=== PATIENT | female | born 1955 | race Caucasian/White ===

== ENCOUNTER 2022-07-27 16:49 | Emergency (ER) | payer OTHER ==
[~2022-07-27] VITALS: Ht 160 cm; Wt 74.8 kg
--- NOTE | 2022-07-27 17:19 | NUR ---
66F presents to ED with c/o productive cough, SOB, and ABD pain x1.5 weeks. Pt reports a constant aching like pain to RUQ. Pt denies fevers, chills, N/V/D. Pt reports being seen at [facility] this morning and referred to visit an ED to r/o appendicitis or hernia. Pt reports using prednisone and azithromycin with no relief. Pt changed into gown and placed on bedside monitor.
[2022-07-27] MEDS ORDERED: MORPHINE SULFATE 4 MG/ML SYR IVP ONE (17:30)
[2022-07-27] MEDS ORDERED: NACL 0.9% 1,000 ML IV ONE (17:30)
[2022-07-27 17:54] LABS: BASOPHILS % (AUTO) 0.3 % (0.0-2.0); HEMATOCRIT 40.8 % (36-48); HEMOGLOBIN 13.8 g/dL (12.0-16.0); LYMPHOCYTES % (AUTO) 8.8 % (20.5-51.1); MEAN CORPUSCULAR HEMOGLOBIN 30 pg (27-31); MEAN CORPUSCULAR HGB CONC 34 g/dL (33-37); MEAN CORPUSCULAR VOLUME 89.1 fL (80-94); MONOCYTES # (AUTO) 1.2 K/uL (0.8-1.0); MONOCYTES % (AUTO) 10.5 % (1.7-9.3); NEUTROPHILS # (AUTO) 9.4 K/uL (1.8-7.7); NEUTROPHILS % (AUTO) 80.4 % (42.2-75.2); PLATELET COUNT (AUTO) 235 K/uL (140-450); RED BLOOD CELL COUNT(AUTO) 4.57 MIL/uL (4.20-5.40); RED CELL DISTRIBUTION WIDTH 13.7 % (11.6-13.7); WHITE BLOOD COUNT (AUTO) 11.7 K/uL (4.8-10.8)
[2022-07-27 18:22] LABS: ALBUMIN 4.5 g/dL (3.4-5.0); ANION GAP 15.4 (8-16); ASPARTATE AMINOTRANSFERASE 20 U/L (15-37); CARBON DIOXIDE 25.8 mmol/L (21-32); CHLORIDE 95 mmol/L (98-107); CREATININE 1.3 mg/dL (0.6-1.3); GFR ARICAN-AMERICAN 53 mL/min (>90); GLUCOSE 97 mg/dL (74-106); LIPASE 213 U/L (73-393); POTASSIUM 3.2 mmol/L (3.5-5.1); SODIUM SERUM 133 mmol/L (136-145); TOTAL BILIRUBIN 0.5 mg/dL (0.0-1.0); UREA NITROGEN, BLOOD 23 mg/dL (7-18)
[2022-07-27 18:50] LABS: APPEARANCE,URINE CLEAR (CLEAR); BILIRUBIN,URINE NEGATIVE (NEGATIVE); BLOOD, URINE NEGATIVE (NEGATIVE); COLOR,URINE YELLOW (YELLOW); LEUKOCYTE ESTERASE ,URINE 3+ (NEGATIVE); NITRITE, URINE NEGATIVE (NEGATIVE); UGLUCOSE NEGATIVE (NEGATIVE)
--- NOTE | 2022-07-27 19:13 | NUR ---
Pt report given to TIN Gonzalez. Transfer of care at this time.
[2022-07-27 19:36] LABS: RBC,URINE 0-5 /HPF (0-5); YEAST,URINE None Seen /HPF (None Seen)
[2022-07-27 19:37] LABS: TRICHOMONAS,URINE None Seen /HPF (None Seen)
--- NOTE | 2022-07-27 20:00 | NUR ---
Patient resting in bed, A/Ox4, chest rise and fall symmetrical, no c/o pain or s/s of distress, patient on monitor
[2022-07-27] MEDS ORDERED: NITR100C7 PO (20:09)
[2022-07-27] MEDS ORDERED: POTASSIUM CHLORIDE 10 MEQ TABER PO ONE (20:15)
[2022-07-27] MEDS ORDERED: NITROFURANTOIN 100 MG CAP PO ONE (20:15)
[2022-07-27 20:52] VITALS: BP 124/85
== END 2022-07-27 20:30 | disposition home or self-care (01) ==
LOC: MED 16:49
DX: N39.0 Urinary tract infection, site not specified (principal); Z20.822 Contact with and (suspected) exposure to COVID-19; R07.9 Chest pain, unspecified; I10 Essential (primary) hypertension; N18.9 Chronic kidney disease, unspecified; J44.9 Chronic obstructive pulmonary disease, unspecified; E78.5 Hyperlipidemia, unspecified; E87.6 Hypokalemia; Z79.899 Other long term (current) drug therapy
CPT/HCPCS: 36415; 71275; 74177; 80053; 81001; 83690; 84484; 85025; 87086; 87426; 93005; 96361; 96374; 99285; J2270; J7030; Q9967

== ENCOUNTER 2022-08-03 13:27 | Emergency (ER) | payer OTHER ==
[~2022-08-03] VITALS: Ht 162.6 cm; Wt 72.6 kg
[~2022-08-03 13:27] MED LIST: NITR100C7 PO
[2022-08-03 13:48] VITALS: BP 132/83
--- NOTE | 2022-08-03 13:57 | NUR ---
PT AMB TO BED 3
[2022-08-03] MEDS ORDERED: ONDANSETRON 4 MG/2 ML VIAL IVP ONE (14:15)
[2022-08-03] MEDS ORDERED: MORPHINE SULFATE 4 MG/ML SYR IVP ONE (14:15)
[2022-08-03] MEDS ORDERED: NACL 0.9% 1,000 ML IV ONE (14:15)
[2022-08-03 14:36] LABS: BASOPHILS # (AUTO) 0.1 K/uL (0.00-0.22); BASOPHILS % (AUTO) 0.6 % (0.0-2.0); EOSINOPHILS % (AUTO) 0.3 % (0.0-4.0); HEMOGLOBIN 13.8 g/dL (12.0-16.0); LYMPHOCYTES # (AUTO) 1.8 K/uL (2.5-16.5); LYMPHOCYTES % (AUTO) 18.9 % (20.5-51.1); MEAN CORPUSCULAR HEMOGLOBIN 31 pg (27-31); MEAN CORPUSCULAR HGB CONC 35 g/dL (33-37); MEAN CORPUSCULAR VOLUME 89.6 fL (80-94); MONOCYTES # (AUTO) 0.8 K/uL (0.8-1.0); NEUTROPHILS # (AUTO) 6.7 K/uL (1.8-7.7); NEUTROPHILS % (AUTO) 71.2 % (42.2-75.2); PLATELET COUNT (AUTO) 300 K/uL (140-450); RED BLOOD CELL COUNT(AUTO) 4.46 MIL/uL (4.20-5.40); RED CELL DISTRIBUTION WIDTH 13.5 % (11.6-13.7); WHITE BLOOD COUNT (AUTO) 9.3 K/uL (4.8-10.8)
[2022-08-03 14:39] LABS: APPEARANCE,URINE CLEAR (CLEAR); BILIRUBIN,URINE SMALL (NEGATIVE); BLOOD, URINE NEGATIVE (NEGATIVE); COLOR,URINE YELLOW (YELLOW); LEUKOCYTE ESTERASE ,URINE NEGATIVE (NEGATIVE); NITRITE, URINE NEGATIVE (NEGATIVE); UGLUCOSE NEGATIVE (NEGATIVE)
[2022-08-03 14:51] LABS: ALBUMIN 4.4 g/dL (3.4-5.0); ANION GAP 15.7 (8-16); CREATININE 1.5 mg/dL (0.6-1.3); POTASSIUM 3.7 mmol/L (3.5-5.1); TOTAL BILIRUBIN 0.3 mg/dL (0.0-1.0)
[2022-08-03 15:13] LABS: RBC,URINE NONE SEEN /HPF (0-5)
[2022-08-03 15:14] LABS: TRICHOMONAS,URINE None Seen /HPF (None Seen); WBC,URINE 0-5 /HPF (0-5); YEAST,URINE None Seen /HPF (None Seen)
--- NOTE | 2022-08-03 15:30 | NUR ---
a/o times 4, medicated for abd pain, also reports md tin notified, o2 sat 96% ra
[2022-08-03] MEDS ORDERED: ALBUTEROL SULFATE/IPRATROPIU 3 ML SOL IH ONE (15:35)
--- NOTE | 2022-08-03 16:20 | NUR ---
feels better about abd pain, 2/10, no sob, o2 sat 98% ra, sr up time 2
[2022-08-03] MEDS ORDERED: PRED20TA5 PO (16:30)
[2022-08-03] MEDS ORDERED: DOXY-690 PO (16:30)
[2022-08-03] MEDS ORDERED: ALBU0.0912 IH (16:30)
[2022-08-03 16:44] VITALS: BP 127/76
--- NOTE | 2022-08-03 16:47 | NUR ---
Patient discharged with v/s stable. Written and verbal after care instructions given and explained. Patient verbalized understanding. Ambulatory with steady gait. All questions addressed prior to discharge. Advised to follow up with PMD in 2-3 days
--- NOTE | 2022-08-06 08:16 | NUR ---
LATE ENTRY -- CONFIRMED WITH NURSE NS INFUSION COMPLETED AT 1532 08/03/22
== END 2022-08-03 16:47 | disposition home or self-care (01) ==
LOC: MED 13:27
DX: J18.9 Pneumonia, unspecified organism (principal); Z20.822 Contact with and (suspected) exposure to COVID-19; R10.31 Right lower quadrant pain; N18.9 Chronic kidney disease, unspecified; J44.9 Chronic obstructive pulmonary disease, unspecified; I10 Essential (primary) hypertension; Z79.899 Other long term (current) drug therapy
CPT/HCPCS: 36415; 71045; 74176; 80053; 81001; 83605; 83690; 85025; 87040; 87426; 87804; 94640; 94760; 96361; 96374; 96375; 99285; J2270; J2405; J7030; Q0092

== ENCOUNTER 2023-02-12 20:45 | Emergency (ER) | payer OTHER ==
[~2023-02-12 20:45] MED LIST changes: +ALBU0.0912 IH; +DOXY-690 PO; +PRED20TA5 PO
[2023-02-13] MEDS ORDERED: AMPH10TA PO (04:07)
[2023-02-13] MEDS ORDERED: ACET-9527 PO (04:07)
[2023-02-13] MEDS ORDERED: ATOR40TA PO (04:07)
[2023-02-13] MEDS ORDERED: PROP20TA29 PO (04:07)
[2023-02-13] MEDS ORDERED: LOSA100T2 PO (04:07)
[2023-02-13] MEDS ORDERED: VARE1TAB34 PO (04:07)
[2023-02-13] MEDS ORDERED: DULO30EC PO (04:07)
[2023-02-13] MEDS ORDERED: LID5T TP (04:13)
[2023-02-13] MEDS ORDERED: BENZ150C2 PO (04:13)
[2023-02-13] MEDS ORDERED: BENZ200C4 PO (04:13)
[2023-02-13] MEDS ORDERED: HYDR-133 PO (04:13)
[2023-02-13] MEDS ORDERED: FLUT1DSK2 IH (04:13)
[2023-02-13] MEDS ORDERED: CITA20TA15 PO (04:13)
== END 2023-02-12 22:04 | disposition left against medical advice (07) ==
LOC: MED 20:45
DX: Z53.21 Procedure and treatment not carried out due to patient leaving prior to being seen by health care provider (principal)

== ENCOUNTER 2023-02-12 23:13 | Inpatient (IN) | payer OTHER ==
[~2023-02-12] VITALS: Ht 162.6 cm; Wt 72.6 kg
[2023-02-12 23:18] VITALS: BP 138/77; PULSE 95; RESP 22; TEMP 99.5; O2SAT 96
[2023-02-13] MEDS ORDERED: AMPICILLIN/SULBACTAM 3 GM VIAL IM ONE (01:30)
[2023-02-13] MEDS ORDERED: ACETAMINOPHEN EXTRA STRENGTH 500 MG TAB PO ONE (01:30)
[2023-02-13] MEDS ORDERED: MORPHINE SULFATE 4 MG/ML SYR IVP ONE ×3 (02:20→05:00)
[2023-02-13] MEDS ORDERED: AMPICILLIN/SULBACTAM 3 GM in NACL 0.9% 100 ML IV ONE (02:50)
[2023-02-13 03:06] LABS: BASOPHILS % (AUTO) 0.4 % (0.0-2.0); EOSINOPHILS % (AUTO) 0.3 % (0.0-4.0); HEMATOCRIT 35.7 % (36-48); LYMPHOCYTES # (AUTO) 2.2 K/uL (2.5-16.5); LYMPHOCYTES % (AUTO) 18.9 % (20.5-51.1); MEAN CORPUSCULAR HEMOGLOBIN 30 pg (27-31); MEAN CORPUSCULAR HGB CONC 34 g/dL (33-37); MEAN CORPUSCULAR VOLUME 88.2 fL (80-94); MONOCYTES # (AUTO) 1.1 K/uL (0.8-1.0); MONOCYTES % (AUTO) 9.3 % (1.7-9.3); NEUTROPHILS # (AUTO) 8.2 K/uL (1.8-7.7); NEUTROPHILS % (AUTO) 71.1 % (42.2-75.2); PLATELET COUNT (AUTO) 160 K/uL (140-450); RED BLOOD CELL COUNT(AUTO) 4.05 MIL/uL (4.20-5.40); RED CELL DISTRIBUTION WIDTH 14.8 % (11.6-13.7); WHITE BLOOD COUNT (AUTO) 11.6 K/uL (4.8-10.8)
[2023-02-13 03:18] LABS: ANION GAP 16.2 (8-16); CALCIUM 8.7 mg/dL (8.5-10.1); CARBON DIOXIDE 22.9 mmol/L (21-32); CREATININE 1.8 mg/dL (0.6-1.3); POTASSIUM 3.1 mmol/L (3.5-5.1)
[2023-02-13 03:27] LABS: LACTIC ACID 1.2 mmol/L (0.4-2.0)
[2023-02-13] MEDS ORDERED: ACET-9527 PO (04:07)
[2023-02-13] MEDS ORDERED: LOSA100T2 PO (04:07)
[2023-02-13] MEDS ORDERED: VARE1TAB34 PO (04:07)
[2023-02-13] MEDS ORDERED: DULO30EC PO (04:07)
[2023-02-13] MEDS ORDERED: ATOR40TA PO (04:07)
[2023-02-13] MEDS ORDERED: AMPH10TA PO (04:07)
[2023-02-13] MEDS ORDERED: PROP20TA29 PO (04:07)
[2023-02-13] MEDS ORDERED: LID5T TP (04:13)
[2023-02-13] MEDS ORDERED: FLUT1DSK2 IH (04:13)
[2023-02-13] MEDS ORDERED: HYDR-133 PO (04:13)
[2023-02-13] MEDS ORDERED: BENZ200C4 PO (04:13)
[2023-02-13] MEDS ORDERED: CITA20TA15 PO (04:13)
[2023-02-13] MEDS ORDERED: BENZ150C2 PO (04:13)
[2023-02-13] MEDS ORDERED: KETOROLAC 15 MG/ML VIAL IVP ONE ×2 (04:30→05:00)
[2023-02-13] MEDS ORDERED: ONDANSETRON 4 MG/2 ML VIAL IVP PRN (05:50)
[2023-02-13] MEDS ORDERED: ACETAMINOPHEN 325 MG TAB PO PRN (05:50)
[2023-02-13] MEDS: AMPICILLIN/SULBACTAM 1.5 GM in NACL 0.9% 50 ML IV SCH ×2 (06:00→11:47)
[2023-02-13] MEDS: NACL 0.9% 1,000 ML IV SCH ×3 (06:48→23:46)
[2023-02-13 08:00] VITALS: RESP 18; O2SAT 98
[2023-02-13] MEDS: HYDROcodone/APAP 5/325 MG 1 TAB TAB PO PRN ×3 (11:49→22:18)
[2023-02-13] MEDS ORDERED: POTASSIUM CHLORIDE 10 MEQ TABER PO SCH (12:00)
[2023-02-13 16:00] VITALS: BP 132/64; PULSE 84; RESP 18; TEMP 97.4; O2SAT 98
[2023-02-13] MEDS ORDERED: VANCOMYCIN PER PHARMACY MC PRN (16:25)
[2023-02-13 20:00] VITALS: BP 134/62; PULSE 82; RESP 18; TEMP 98; O2SAT 98
[2023-02-13] MEDS ORDERED: VANCOMYCIN 1,000 MG in DEXTROSE 5% 250 ML IV SCH (20:00)
[2023-02-13] MEDS ORDERED: CLINDAMYCIN 900MG/D5W PM 50 ML IV SCH (21:00)
[2023-02-13] MEDS: AMPICILLIN/SULBACTAM 3 GM in NACL 0.9% 100 ML IV SCH (23:45)
[2023-02-14 04:00] VITALS: BP 110/63; PULSE 85; RESP 18; TEMP 97.8; O2SAT 97
[2023-02-14] MEDS: AMPICILLIN/SULBACTAM 3 GM in NACL 0.9% 100 ML IV SCH ×3 (05:27→18:32)
[2023-02-14] MEDS: HYDROcodone/APAP 5/325 MG 1 TAB TAB PO PRN ×4 (05:28→23:14)
[2023-02-14] MEDS: NICOTINE TRANSD SYS 21 MG/24 HR PATCH TD SCH (09:00)
[2023-02-14] MEDS: NACL 0.9% 1,000 ML IV SCH ×2 (11:50→21:50)
[2023-02-14] MEDS: NON ADHERENT DRESSING TP SCH (13:00)
[2023-02-14] MEDS: MORPHINE SULFATE 2 MG/ML SYR IVP PRN ×2 (15:46→20:56)
[2023-02-14 16:00] VITALS: BP 138/57; PULSE 91; RESP 20; TEMP 97.7; O2SAT 98
[2023-02-14 16:04] LABS: BASOPHILS % (AUTO) 0.5 % (0.0-2.0); EOSINOPHILS # (AUTO) 0.1 K/uL (0-0.4); EOSINOPHILS % (AUTO) 1.2 % (0.0-4.0); HEMATOCRIT 34.8 % (36-48); HEMOGLOBIN 11.7 g/dL (12.0-16.0); MEAN CORPUSCULAR HEMOGLOBIN 30 pg (27-31); MEAN CORPUSCULAR HGB CONC 34 g/dL (33-37); MEAN CORPUSCULAR VOLUME 88.7 fL (80-94); MONOCYTES # (AUTO) 0.5 K/uL (0.8-1.0); MONOCYTES % (AUTO) 6.9 % (1.7-9.3); NEUTROPHILS # (AUTO) 5.3 K/uL (1.8-7.7); NEUTROPHILS % (AUTO) 77.4 % (42.2-75.2); PLATELET COUNT (AUTO) 143 K/uL (140-450); RED BLOOD CELL COUNT(AUTO) 3.92 MIL/uL (4.20-5.40); RED CELL DISTRIBUTION WIDTH 14.7 % (11.6-13.7); WHITE BLOOD COUNT (AUTO) 6.8 K/uL (4.8-10.8)
[2023-02-14 16:22] LABS: ALBUMIN 3.2 g/dL (3.4-5.0); ANION GAP 13.7 (8-16); CALCIUM 8.7 mg/dL (8.5-10.1); CARBON DIOXIDE 25.8 mmol/L (21-32); CREATININE 1.1 mg/dL (0.6-1.3); POTASSIUM 3.5 mmol/L (3.5-5.1); TOTAL BILIRUBIN 0.6 mg/dL (0.0-1.0); TOTAL PROTEIN, SERUM 6.7 g/dL (6.4-8.2)
[2023-02-14 20:00] VITALS: BP 132/58; PULSE 82; RESP 20; TEMP 97.1; O2SAT 98
[2023-02-14] MEDS: VANCOMYCIN 1,000 MG in DEXTROSE 5% 250 ML IV SCH (20:55)
[2023-02-15] MEDS: AMPICILLIN/SULBACTAM 3 GM in NACL 0.9% 100 ML IV SCH ×5 (00:09→23:49)
[2023-02-15] MEDS: HYDROcodone/APAP 5/325 MG 1 TAB TAB PO PRN ×3 (03:25→23:57)
[2023-02-15] MEDS: NACL 0.9% 1,000 ML IV SCH ×3 (05:03→21:04)
[2023-02-15 06:39] LABS: ANION GAP 11.8 (8-16); CALCIUM 8.3 mg/dL (8.5-10.1); CARBON DIOXIDE 25.7 mmol/L (21-32); CREATININE 1.2 mg/dL (0.6-1.3); POTASSIUM 3.5 mmol/L (3.5-5.1)
[2023-02-15 08:00] VITALS: BP 159/75; PULSE 72; PULSE 78; RESP 17; RESP 18; TEMP 97.5; O2SAT 98; O2SAT 99
[2023-02-15] MEDS: NICOTINE TRANSD SYS 21 MG/24 HR PATCH TD SCH (09:34)
[2023-02-15] MEDS: NON ADHERENT DRESSING TP SCH (13:00)
[2023-02-15] MEDS: MORPHINE SULFATE 2 MG/ML SYR IVP PRN ×2 (14:08→21:05)
[2023-02-15 16:00] VITALS: BP 148/76; PULSE 86; RESP 17; TEMP 98.9; O2SAT 100
[2023-02-15 20:00] VITALS: BP 151/74; PULSE 95; RESP 18; TEMP 97.1; O2SAT 99
[2023-02-15] MEDS: VANCOMYCIN 1,000 MG in DEXTROSE 5% 250 ML IV SCH (21:04)
[2023-02-15] MEDS: ZOLPIDEM 5 MG TAB PO PRN (22:05)
[2023-02-16] MEDS: MORPHINE SULFATE 2 MG/ML SYR IVP PRN ×2 (03:49→19:59)
[2023-02-16 04:00] VITALS: BP 158/87; PULSE 78; RESP 16; TEMP 97.2; O2SAT 99
[2023-02-16] MEDS: AMPICILLIN/SULBACTAM 3 GM in NACL 0.9% 100 ML IV SCH ×4 (05:40→23:39)
[2023-02-16 07:02] LABS: BASOPHILS % (AUTO) 0.9 % (0.0-2.0); EOSINOPHILS # (AUTO) 0.2 K/uL (0-0.4); EOSINOPHILS % (AUTO) 3.6 % (0.0-4.0); HEMATOCRIT 33.2 % (36-48); HEMOGLOBIN 11.2 g/dL (12.0-16.0); LYMPHOCYTES # (AUTO) 1.7 K/uL (2.5-16.5); LYMPHOCYTES % (AUTO) 36.2 % (20.5-51.1); MEAN CORPUSCULAR HEMOGLOBIN 30 pg (27-31); MEAN CORPUSCULAR HGB CONC 34 g/dL (33-37); MEAN CORPUSCULAR VOLUME 89.2 fL (80-94); MONOCYTES # (AUTO) 0.4 K/uL (0.8-1.0); MONOCYTES % (AUTO) 9.5 % (1.7-9.3); NEUTROPHILS # (AUTO) 2.3 K/uL (1.8-7.7); NEUTROPHILS % (AUTO) 49.8 % (42.2-75.2); PLATELET COUNT (AUTO) 146 K/uL (140-450); RED BLOOD CELL COUNT(AUTO) 3.73 MIL/uL (4.20-5.40); RED CELL DISTRIBUTION WIDTH 14.4 % (11.6-13.7); WHITE BLOOD COUNT (AUTO) 4.7 K/uL (4.8-10.8)
[2023-02-16 07:14] LABS: ANION GAP 13.1 (8-16); CALCIUM 8.8 mg/dL (8.5-10.1); CARBON DIOXIDE 28.2 mmol/L (21-32); POTASSIUM 3.3 mmol/L (3.5-5.1)
[2023-02-16 08:00] VITALS: BP 160/67; PULSE 78; RESP 18; TEMP 98.2; O2SAT 97
[2023-02-16] MEDS ORDERED: POTASSIUM CHLORIDE 10 MEQ TABER PO PRN (08:30)
[2023-02-16] MEDS ORDERED: PROPRANOLOL 20 MG TAB PO SCH (09:28)
[2023-02-16] MEDS: HYDROcodone/APAP 5/325 MG 1 TAB TAB PO PRN ×2 (10:32→18:40)
[2023-02-16] MEDS: LOSARTAN 50 MG TAB PO SCH (10:33)
[2023-02-16] MEDS: POTASSIUM CHLORIDE 10 MEQ TABER PO PRN (10:33)
[2023-02-16] MEDS: NICOTINE TRANSD SYS 21 MG/24 HR PATCH TD SCH ×2 (10:33→23:25)
[2023-02-16] MEDS: hydroCHLOROthiazide 25 MG TAB PO SCH (10:34)
[2023-02-16] MEDS: NACL 0.9% 1,000 ML IV SCH ×2 (10:40→23:39)
[2023-02-16] MEDS: NON ADHERENT DRESSING TP SCH (13:31)
[2023-02-16 16:00] VITALS: BP 156/79; PULSE 63; RESP 18; TEMP 97.8; O2SAT 98
[2023-02-16 20:00] VITALS: PULSE 75; RESP 18; O2SAT 98
[2023-02-16 21:04] LABS: ANION GAP 11.9 (8-16); CALCIUM 8.9 mg/dL (8.5-10.1); CARBON DIOXIDE 29.9 mmol/L (21-32); CREATININE 1.4 mg/dL (0.6-1.3); POTASSIUM 3.8 mmol/L (3.5-5.1)
[2023-02-16] MEDS: PROPRANOLOL 120 MG PO SCH (21:14)
[2023-02-16] MEDS: ZOLPIDEM 5 MG TAB PO PRN (22:01)
[2023-02-16] MEDS: VANCOMYCIN 1,000 MG in DEXTROSE 5% 250 ML IV SCH (22:09)
[2023-02-17] VITALS: BP 154/69; PULSE 70; RESP 18; TEMP 98.3; O2SAT 98
[2023-02-17] MEDS: AMPICILLIN/SULBACTAM 3 GM in NACL 0.9% 100 ML IV SCH ×4 (06:35→23:06)
[2023-02-17 06:39] LABS: BASOPHILS # (AUTO) 0.1 K/uL (0.00-0.22); BASOPHILS % (AUTO) 1.1 % (0.0-2.0); EOSINOPHILS # (AUTO) 0.2 K/uL (0-0.4); EOSINOPHILS % (AUTO) 2.8 % (0.0-4.0); HEMATOCRIT 34.1 % (36-48); HEMOGLOBIN 11.5 g/dL (12.0-16.0); LYMPHOCYTES # (AUTO) 1.8 K/uL (2.5-16.5); LYMPHOCYTES % (AUTO) 31.4 % (20.5-51.1); MEAN CORPUSCULAR HEMOGLOBIN 30 pg (27-31); MEAN CORPUSCULAR HGB CONC 34 g/dL (33-37); MEAN CORPUSCULAR VOLUME 88.7 fL (80-94); MONOCYTES # (AUTO) 0.4 K/uL (0.8-1.0); MONOCYTES % (AUTO) 7.5 % (1.7-9.3); NEUTROPHILS # (AUTO) 3.2 K/uL (1.8-7.7); NEUTROPHILS % (AUTO) 57.2 % (42.2-75.2); PLATELET COUNT (AUTO) 156 K/uL (140-450); RED BLOOD CELL COUNT(AUTO) 3.85 MIL/uL (4.20-5.40); RED CELL DISTRIBUTION WIDTH 14.5 % (11.6-13.7); WHITE BLOOD COUNT (AUTO) 5.7 K/uL (4.8-10.8)
[2023-02-17 06:58] LABS: ANION GAP 14.6 (8-16); CALCIUM 8.7 mg/dL (8.5-10.1); CARBON DIOXIDE 23.7 mmol/L (21-32); POTASSIUM 3.3 mmol/L (3.5-5.1)
[2023-02-17 08:00] VITALS: BP 147/72; PULSE 72; RESP 18; TEMP 96.9; O2SAT 98
[2023-02-17] MEDS: hydroCHLOROthiazide 25 MG TAB PO SCH (09:46)
[2023-02-17] MEDS: LOSARTAN 50 MG TAB PO SCH (09:47)
[2023-02-17] MEDS: MORPHINE SULFATE 2 MG/ML SYR IVP PRN (09:49)
[2023-02-17] MEDS: NACL 0.9% 1,000 ML IV SCH ×2 (09:50→19:50)
[2023-02-17] MEDS: HYDROcodone/APAP 5/325 MG 1 TAB TAB PO PRN ×3 (12:43→22:16)
[2023-02-17] MEDS: NON ADHERENT DRESSING TP SCH (13:40)
[2023-02-17] MEDS: VANCOMYCIN 750 MG in DEXTROSE 5% 250 ML IV SCH (13:42)
[2023-02-17 14:07] VITALS: PULSE 72; RESP 18; O2SAT 98
[2023-02-17 16:00] VITALS: BP 150/92; PULSE 68; RESP 18; TEMP 96.9; O2SAT 98
[2023-02-17] MEDS: POTASSIUM CHLORIDE 10 MEQ TABER PO PRN (19:05)
[2023-02-17 20:00] VITALS: PULSE 81; RESP 18; O2SAT 98
[2023-02-17] MEDS: PROPRANOLOL 120 MG PO SCH (20:52)
[2023-02-17] MEDS: ZOLPIDEM 5 MG TAB PO PRN (22:51)
[2023-02-17] MEDS: NICOTINE TRANSD SYS 21 MG/24 HR PATCH TD SCH (22:52)
[2023-02-18] VITALS: BP 136/72; PULSE 81; RESP 18; TEMP 97.6; O2SAT 98
[2023-02-18] MEDS: VANCOMYCIN 750 MG in DEXTROSE 5% 250 ML IV SCH ×2 (00:15→13:23)
[2023-02-18] MEDS: AMPICILLIN/SULBACTAM 3 GM in NACL 0.9% 100 ML IV SCH ×2 (05:08→12:14)
[2023-02-18] MEDS: NACL 0.9% 1,000 ML IV SCH ×2 (05:08→15:50)
[2023-02-18 07:24] LABS: BASOPHILS # (AUTO) 0.1 K/uL (0.00-0.22); BASOPHILS % (AUTO) 1.1 % (0.0-2.0); EOSINOPHILS # (AUTO) 0.2 K/uL (0-0.4); EOSINOPHILS % (AUTO) 2.9 % (0.0-4.0); HEMATOCRIT 36.6 % (36-48); HEMOGLOBIN 12.1 g/dL (12.0-16.0); LYMPHOCYTES # (AUTO) 1.8 K/uL (2.5-16.5); LYMPHOCYTES % (AUTO) 30.2 % (20.5-51.1); MEAN CORPUSCULAR HEMOGLOBIN 29 pg (27-31); MEAN CORPUSCULAR HGB CONC 33 g/dL (33-37); MONOCYTES # (AUTO) 0.5 K/uL (0.8-1.0); MONOCYTES % (AUTO) 8.2 % (1.7-9.3); NEUTROPHILS # (AUTO) 3.5 K/uL (1.8-7.7); NEUTROPHILS % (AUTO) 57.6 % (42.2-75.2); PLATELET COUNT (AUTO) 161 K/uL (140-450); RED BLOOD CELL COUNT(AUTO) 4.11 MIL/uL (4.20-5.40); RED CELL DISTRIBUTION WIDTH 14.3 % (11.6-13.7)
[2023-02-18 07:31] LABS: ANION GAP 11.8 (8-16); CALCIUM 8.9 mg/dL (8.5-10.1); CARBON DIOXIDE 28.5 mmol/L (21-32); CREATININE 1.2 mg/dL (0.6-1.3); POTASSIUM 3.3 mmol/L (3.5-5.1)
[2023-02-18 08:00] VITALS: BP 155/73; PULSE 64; RESP 17; RESP 18; TEMP 97.2; O2SAT 100
[2023-02-18] MEDS: POTASSIUM CHLORIDE 10 MEQ TABER PO PRN (09:34)
[2023-02-18] MEDS: hydroCHLOROthiazide 25 MG TAB PO SCH (09:34)
[2023-02-18] MEDS: HYDROcodone/APAP 5/325 MG 1 TAB TAB PO PRN ×2 (09:36→17:24)
[2023-02-18] MEDS: LOSARTAN 50 MG TAB PO SCH (09:37)
[2023-02-18] MEDS ORDERED: AMOX-1230 PO (11:06)
[2023-02-18] MEDS: NON ADHERENT DRESSING TP SCH (13:23)
[2023-02-18 16:00] VITALS: BP 137/72; PULSE 65; RESP 18; TEMP 97.2; O2SAT 99
[2023-02-18 17:25] VITALS: BP 132/72; PULSE 65; RESP 18; TEMP 97.2
== END 2023-02-18 19:01 | disposition home health service (06) | DRG 871 ==
LOC: MED 23:13 → MTU 02-13 05:54
PROVIDERS: ADMIT Student in an Organized Health Care Education/Training Program; ATTEND Student in an Organized Health Care Education/Training Program
DX: A41.9 Sepsis, unspecified organism (principal); N17.0 Acute kidney failure with tubular necrosis; L03.114 Cellulitis of left upper limb; E44.1 Mild protein-calorie malnutrition; F17.210 Nicotine dependence, cigarettes, uncomplicated; Z20.822 Contact with and (suspected) exposure to COVID-19; I12.9 Hypertensive chronic kidney disease with stage 1 through stage 4 chronic kidney disease, or unspecified chronic kidney disease; N18.9 Chronic kidney disease, unspecified; J44.9 Chronic obstructive pulmonary disease, unspecified; M19.90 Unspecified osteoarthritis, unspecified site; S51.852A Open bite of left forearm, initial encounter; W55.01XA Bitten by cat, initial encounter; Y93.89 Activity, other specified; Y92.89 Other specified places as the place of occurrence of the external cause; Y99.8 Other external cause status; Z68.27 Body mass index [BMI] 27.0-27.9, adult; Z79.899 Other long term (current) drug therapy
CPT/HCPCS: 36415; 73030; 73200; 80048; 80053; 80202; 83605; 83735; 84100; 85025; 86140; 87040; 87070; 87081; 90471; 90715; 96365; 96375; 96376; 99285; J0295; J0696; J1885; J2270; J3370; J7060; Q0092